=== PATIENT | male | born 1965 | race Caucasian/White ===

== ENCOUNTER → 2016-10-16 | Outpatient (CLI) | payer OTHER ==
[~2016-10-16] VITALS: Ht 185.4 cm; Wt 106.6 kg
[~2016-10-16] MED LIST: LISI-538 PO; NS 1,000 ML IV ONE; PROPOFOL 200 MG/20 ML VIAL As Ordered ONE
--- NOTE | 2016-10-16 09:35 | ROOR ---
Patient Name: Lamonte Zacarias Procedure Date: 10/16/2016 8:59 AM Date of : 1965 Age: 51 Room: [facility] [place] Gender: Male Note Status: Finalized Procedure: Colonoscopy Indications: Screening for colorectal malignant neoplasm Providers: Servando Marroquin MD Referring MD: TERESA SCALES MD Requesting Provider: Medicines: Monitored Anesthesia Care Complications: No immediate complications. Procedure: Pre-Anesthesia Assessment: - Prior to the procedure, a History and Physical was performed, and patient medications and allergies were reviewed. The patient is competent. The risks and benefits of the procedure and the sedation options and risks were discussed with the patient. All questions were answered and informed consent was obtained. Patient identification and proposed procedure were verified by the physician, the nurse and the anesthesiologist in the endoscopy suite. Mental Status Examination: alert and oriented. Airway Examination: normal oropharyngeal airway and neck mobility. Respiratory Examination: clear to auscultation. CV Examination: normal. Prophylactic Antibiotics: The patient does not require prophylactic antibiotics. Prior Anticoagulants: The patient has taken no previous anticoagulant or antiplatelet agents. ASA Grade Assessment: II - A patient with mild systemic disease. After reviewing the risks and benefits, the patient was deemed in satisfactory condition to undergo the procedure. The anesthesia plan was to use monitored anesthesia care (MAC). Immediately prior to administration of medications, the patient was re-assessed for adequacy to receive sedatives. The heart rate, respiratory rate, oxygen saturations, blood pressure, adequacy of pulmonary ventilation, and response to care were monitored throughout the procedure. The physical status of the patient was re-assessed after the procedure. The Colonoscope was introduced through the anus and advanced to the cecum, identified by appendiceal orifice and ileocecal valve. The colonoscopy was performed without difficulty. The patient tolerated the procedure well. The quality of the bowel preparation was good. Findings: The perianal exam findings include non-thrombosed external hemorrhoids. Multiple small-mouthed diverticula were found in the sigmoid colon, descending colon and transverse colon. A diminutive polyp was found in the sigmoid colon. The polyp was semi-pedunculated. The polyp was removed with a hot snare. Resection and retrieval were complete. Estimated blood loss: none. Three semi-sessile polyps were found in the sigmoid colon. The polyps were 4 to 7 mm in size. These polyps were removed with a hot snare. Resection and retrieval were complete. Estimated blood loss: none. No additional abnormalities were found on retroflexion. Impression: - Non-thrombosed external hemorrhoids found on perianal exam. - Diverticulosis in the sigmoid colon, in the descending colon and in the transverse colon. - Three 4 to 7 mm polyps in the sigmoid colon, removed with a hot snare. Resected and retrieved. Recommendation: - Discharge patient to home (ambulatory). - High fiber diet. - Repeat colonoscopy in 5 years for surveillance. Servando Marroquin MD Servando Marroquin MD 10/16/2016 9:35:17 AM This report has been signed electronically. Number of Addenda: 0 Note Initiated On: 10/16/2016 8:59 AM Estimated Blood Loss: Estimated blood loss: none.
[2016-10-16 09:50] VITALS: BP 151/87
== END | disposition home or self-care (01) ==
LOC: M OPP 07:43
PROVIDERS: ATTEND Surgery
DX: Z12.11 Encounter for screening for malignant neoplasm of colon (principal); D12.5 Benign neoplasm of sigmoid colon; K64.4 Residual hemorrhoidal skin tags; K57.30 Diverticulosis of large intestine without perforation or abscess without bleeding; R00.8 Other abnormalities of heart beat; I10 Essential (primary) hypertension; M19.90 Unspecified osteoarthritis, unspecified site; R06.83 Snoring; F17.220 Nicotine dependence, chewing tobacco, uncomplicated; Z79.899 Other long term (current) drug therapy; Z79.1 Long term (current) use of non-steroidal anti-inflammatories (NSAID); Z80.49 Family history of malignant neoplasm of other genital organs; Z98.1 Arthrodesis status; Z87.19 Personal history of other diseases of the digestive system